=== PATIENT | male | born 1960 | race Caucasian/White ===

== ENCOUNTER 2020-01-18 14:24 | Emergency (ER) | payer OTHER ==
[~2020-01-18] VITALS: Ht 167.6 cm; Wt 118.2 kg
[2020-01-18 14:36] VITALS: BP 147/93
[2020-01-18] MEDS ORDERED: NAPR-855 PO (14:44)
[2020-01-18] MEDS ORDERED: TRAM50TA2 PO (14:45)
[2020-01-18] MEDS ORDERED: ATEN50TA2 PO (14:45)
[2020-01-18] MEDS ORDERED: ASPI81CH33 PO (14:46)
[2020-01-18] MEDS ORDERED: CYCL-707 PO (14:46)
[2020-01-18] MEDS ORDERED: ACET650T15 PO (14:46)
[2020-01-18] MEDS ORDERED: BENA25CA4 PO (14:47)
[2020-01-18] MEDS ORDERED: SM LTAB5 PO (14:47)
[2020-01-18] MEDS ORDERED: OMEP40CA97 PO (14:48)
[2020-01-18] MEDS ORDERED: NORC1TAB7 PO (15:09)
--- NOTE | 2020-01-18 16:06 | REP ---
REASON: Trauma. The accompanying frontal view of the chest shows mild cardiomegaly and clear lungs. Bilateral rib series shows the left 9th and 10th ribs to be fractured with the left 9th rib to be fractured in two places. The left 8th rib is possibly fractured as well seen on one view. There are no right rib fractures. IMPRESSION: Left-sided rib fractures as described above. Electronically Signed by Prosper Lomas DO 01/18/2020 04:20 P
== END 2020-01-18 15:36 | disposition home or self-care (01) ==
LOC: EDBD 14:24 → M ED 14:24
DX: S22.42XA Multiple fractures of ribs, left side, initial encounter for closed fracture (principal); S20.219A Contusion of unspecified front wall of thorax, initial encounter; W11.XXXA Fall on and from ladder, initial encounter; Y92.89 Other specified places as the place of occurrence of the external cause; Y93.89 Activity, other specified; Y99.0 Civilian activity done for income or pay; Z88.8 Allergy status to other drugs, medicaments and biological substances; Z79.899 Other long term (current) drug therapy; Z79.1 Long term (current) use of non-steroidal anti-inflammatories (NSAID); Z79.82 Long term (current) use of aspirin